=== PATIENT | female | born 1970 | race African-American/Black ===

== ENCOUNTER 2017-07-19 23:36 | Emergency (ER) | payer OTHER ==
[~2017-07-19] VITALS: Ht 165.1 cm; Wt 100.0 kg
[2017-07-20 00:30] VITALS: BP 126/65
== END 2017-07-20 01:25 | disposition left against medical advice (07) ==
LOC: ER 23:55
DX: F41.9 Anxiety disorder, unspecified (principal); Z53.21 Procedure and treatment not carried out due to patient leaving prior to being seen by health care provider
CPT/HCPCS: 81025